=== PATIENT | female | born 1985 | race Caucasian/White ===

== ENCOUNTER → 2019-03-18 | Outpatient (CLI) | payer BC ==
[~2019-03-18] MED LIST: IBU600 MG PO; PERCOCET 325 MG1 TA2 PO; PRENATAL1 TA7 PO
== END ==
LOC: MC.RAD 13:00
DX: N63.12 Unspecified lump in the right breast, upper inner quadrant (principal)

== ENCOUNTER → 2019-07-06 | Outpatient (CLI) | payer BC | LOC: MC.RAD 12:57 | DX: N63.12 Unspecified lump in the right breast, upper inner quadrant (principal) ==

== ENCOUNTER → 2020-01-11 | Outpatient (CLI) | payer OTHER | LOC: MC.RAD 09:39 | DX: N63.10 Unspecified lump in the right breast, unspecified quadrant (principal) ==